=== PATIENT | female | born 1955 | race Caucasian/White ===

== ENCOUNTER 2017-02-23 09:19 | Outpatient (CLI) | payer OTHER ==
--- NOTE | 2017-02-23 09:47 | RAD ---
PA AND LATERAL VIEWS OF CHEST: Date: 02/23/17 HISTORY: Shortness of breath. Breast cancer. FINDINGS: There is a right-sided Port-A-Cath with tip in the projection of the SVC. The heart size is normal. The lungs are well expanded without focal areas of consolidation, pneumothorax, or pleural effusions . IMPRESSION: No radiographic evidence of acute cardiopulmonary process. POS: [facility]
== END 2017-02-23 09:20 | disposition home or self-care (01) ==
LOC: NAV RAD 09:19
PROVIDERS: ATTEND Nurse Practitioner Acute Care
DX: C50.919 Malignant neoplasm of unspecified site of unspecified female breast (principal); R06.02 Shortness of breath
CPT/HCPCS: 71020